=== PATIENT | male | born 1975 | race American Indian/Alaskan Native ===

== ENCOUNTER 2025-05-05 14:31 | Outpatient (AMB) | payer MEDICAID, SELFPAY ==
[2025-05-05 14:43] VITALS: BP 151/73; PULSE 90; RESP 19; TEMP 36.8; O2SAT 97; BMI 26.8
--- NOTE | 2025-05-05 14:43 | PD.ORTHCLVIS ---
Vital signs 05/05/25 14:43 Height 1.88 m Height Method Stated Weight 94.829 kg Weight Measurement Method Standing Scale BMI 26.8 BP 151/73 H Blood Pressure Source Automatic Cuff Blood Pressure Location Right Upper Arm Position Sitting Respiration 19 Pulse 90 Pulse Source Monitor Temp 98.2 F Temp Source Temporal Artery Scan Pulse Oximetry (%) 97 Oxygen Delivery Method Room Air Med/Allergies Allergies & Medications Allergies No Known Allergies Allergy (Unknown, Uncoded 05/05/25 14:44) Medication Reconciliation Hydrocodone/Acetaminophen * (NORCO 5/325 *) 1 tab PO Q4H PRN pain #14 tabs 06/19/16 [Rx Confirmed 05/05/25] metformin 1,000 mg tablet (Glucophage) 1,000 mg PO QDAC #0 tabs 06/21/16 [History Confirmed 05/05/25] clindamycin HCl 300 mg capsule 300 mg PO QID #40 caps 04/15/23 [Rx Confirmed 05/05/25] Exam Exam Patient is in no acute distress and is cooperative with the examination today. Breathing is nonlabored. In no respiratory distress. Bilateral extremities were evaluated and demonstrates sensation intact to light touch. Palpable pedal pulses are present. No significant edema is present. Bilateral hips were examined. The patient has no pain with log roll of the hips. Internal rotation to 30 degrees and external rotation to 30 degrees is painless. Negative FADIR. The left knee was examined. The left knee is in varus alignment. Range of motion from 0-115 degrees. Knee is stable to varus and valgus as well as AP translation with <5mm. Patient has a negative McMurrays. There is no pain with patellofemoral compression and no crepitus noted. The knee is tender to palpation medially. The right knee was also examined. The right knee is in varus alignment. Range of motion from 0-120 degrees. Knee is stable to varus and valgus as well as AP translation with <5mm. Patient has a negative McMurrays. There is no pain with patellofemoral compression and no crepitus noted. The knee is tender to palpation medially. Assessment and Plan Problem List (1) Degenerative arthritis of knee, bilateral: Status: Acute Plan: Patient is a 49-year-old male with bilateral knee pain and bilateral knee arthritis. He does not want to take anti-inflammatories or injections at this time. We discussed we can try home exercise program and that I would like to get weightbearing x-rays. We will see him back for follow-up of his xrays Office Procedures GNS Level of Care Nursing/Assessment Patient Status: Established Patient Nursing Assessment/Reassesment: Medication Reconciliation, Update PMH in EMR and Vital Signs Coordination of Care: Complex Care and Chronic Disease 1-5, Education Complex Pt/Fam, Consent,records obtained, informed consent, Results/Orders obtained and Staff clarify orders Established Patient Charge Established Patient Point Assignment: 95 Established Patient Point Charge: EP Level 3 (80-115) MA Intake Visit Data Collection New Patient or Established: Established Patient (seen at [facility] within 3 years) Reason for Visit:: RIGHT KNEE SPRAIN Seen by Clinical Staff ONLY (RN/MA): No Verbal consent obtained for Telemed visit?: No Behavioral Pediatrician Required: No PCP or OBGYN visit in last 3 months: Yes Hx Now: No Do You Feel Safe at Home: Yes Authorities Contacted: N/A Questionairres Past Medical History Past Medical History Have you ever been diagnosed with any of the following: Cardiology Problems Congestive Heart Failure: No Respiratory Problems Chronic Obstructive Pulmonary Disease (COPD): No Asthma: No Genital/Urinary Problems Renal Disease: No Endocrine Problems Diabetes Mellitus Type 1: No Diabetes Mellitus Type 2: Yes Blood Problems Sickle Cell Disease: No Subjective Visit Visit for: new patient and knee Immunization / Flu Flu Vaccine in the Last 12 Months: No Flu Vaccine Exclusion Criteria: Refused by Patient and No Exclusion Criteria History of Present Illness Chief complaint: RIGHT KNEE SPRAIN Jackson is a pleasant 49-year-old male with bilateral knee pain. He is doing well but has pain primarily on the right side. He used to [place]. The pain is primarily anterior and on the sides of his knees. He has an MRI but no standing x-rays Personal History Red flag PMH: BMI and other (specify) (DIABETES) BMI Counceling provided: No Pain Pain level (0-10): 0 Pain duration: COMES AND GOES Pain location: anterior and posterior Pain quality: sharp, dull and aching Pain timing: increases with activity Associated signs & symptoms: stiffness Ambulatory data Ambulatory device: none Treatments Improvement with previous injections: No Improvement with PT: No Improvement with NSAIDS: no Review of Systems Review of Systems: All systems negative unless otherwise noted in HPI.
--- NOTE | 2025-05-05 14:55 | XR_ITS ---
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
== END 2025-05-05 15:04 | disposition home or self-care (01) ==
LOC: HODSRG 14:31
PROVIDERS: PCP Physician Assistant; Referring Provider Physician Assistant; Supervising Provider Orthopaedic Surgery Adult Reconstructive Orthopaedic Surgery; Visit Provider Orthopaedic Surgery Adult Reconstructive Orthopaedic Surgery
DX: M17.0 Bilateral primary osteoarthritis of knee (principal); M25.562 Pain in left knee; M25.561 Pain in right knee; E11.9 Type 2 diabetes mellitus without complications
CPT/HCPCS: 73564; 99213; G0463

== ENCOUNTER 2025-06-18 14:56 | Outpatient (AMB) | payer MEDICAID, SELFPAY ==
[2025-06-18 15:04] VITALS: BP 125/68; PULSE 84; RESP 18; TEMP 36.7; O2SAT 95; BMI 26.7
--- NOTE | 2025-06-18 15:04 | ORTHONT_ITS ---
Vital signs 06/18/25 15:04 Height 1.88 m Height Method Measured Weight 94.489 kg Weight Measurement Method Standing Scale BMI 26.7 BP 125/68 Blood Pressure Source Automatic Cuff Blood Pressure Location Left Upper Arm Position Sitting Respiration 18 Pulse 84 Pulse Source Monitor Temp 98.0 F Temp Source Temporal Artery Scan Pulse Oximetry (%) 95 Oxygen Delivery Method Room Air Med/Allergies Allergies & Medications Allergies No Known Allergies Allergy (Unknown, Uncoded 06/18/25 15:08) Medication Reconciliation Hydrocodone/Acetaminophen * (NORCO 5/325 *) 1 tab PO Q4H PRN pain #14 tabs 06/19/16 [Rx Confirmed 06/18/25] metformin 1,000 mg tablet (Glucophage) 1,000 mg PO QDAC #0 tabs 06/21/16 [History Confirmed 06/18/25] clindamycin HCl 300 mg capsule 300 mg PO QID #40 caps 04/15/23 [Rx Confirmed 06/18/25] meloxicam 7.5 mg tablet 7.5 mg PO QDAY #45 tabs 06/18/25 [Rx] Exam Exam Patient is in no acute distress and is cooperative with the examination today. Breathing is nonlabored. In no respiratory distress. Bilateral extremities were evaluated and demonstrates sensation intact to light touch. Palpable pedal puls es are present. No significant edema is present. Bilateral hips were examined. The patient has no pain with log roll of the hips. Internal rotation to 30 degrees and external rotation to 30 degrees is painless. Negative FADIR. The left knee was examined. The left knee is in varus alignment. Range of motion from 0-115 degrees. Knee is stable to varus and valgus as well as AP translation with <5mm. Patient has a negative McMurrays. There is no pain with patellofemoral compression and no crepitus noted. The knee is tender to palpation medially. The right knee was also examined. The right knee is in varus alignment. Range of motion from 0-120 degrees. Knee is stable to varus and valgus as well as AP translation with <5mm. Patient has a negative McMurrays. There is no pain with patellofemoral compression and no crepitus noted. The knee is tender to palpation medially. Bilateral knee x-rays demonstrate mild arthritis Assessment and Plan Problem List (1) Degenerative arthritis of knee, bilateral: Status: Acute Plan: Patient is a 49-year-old male with bilateral knee pain and bilateral knee arthritis. He does not want to take anti-inflammatories or injections at this time. We will start with anti-inflammatory's at this time. I sent in prescription for meloxicam. He understands that he has a degenerative discal tear as well as mild arthritis on x-ray. We can continue with conservative treatment if he would like to. He reports the pain is not that bad at this time Office Procedures GNS Level of Care Nursing/Assessment Patient Status: Established Patient Nursing Assessment/Reassesment: Medication Reconciliation, Orthostatic Vitals and Update PMH in EMR Coordination of Care: Complex Care and Chronic Disease 1-5, Education Complex Pt/Fam, Consent,records obtained, informed consent, Results/Orders obtained and Staff clarify orders Established Patient Charge Established Patient Point Assignment: 90 Established Patient Point Charge: EP Level 3 (80-115) MA Intake Visit Data Collection New Patient or Established: Established Patient (seen at [facility] within 3 years) Reason for Visit:: F/U XRAY RESULTS Seen by Clinical Staff ONLY (RN/MA): No Plastics Plater Required: No PCP or OBGYN visit in last 3 months: Yes Hx Now: No Do You Feel Safe at Home: Yes Authorities Contacted: N/A Questionairres Past Medical History Past Medical History Have you ever been diagnosed with any of the following: Cardiology Problems Congestive Heart Failure: No Respiratory Problems Chronic Obstructive Pulmonary Disease (COPD): No Asthma: No Genital/Urinary Problems Renal Disease: No Endocrine Problems Diabetes Mellitus Type 1: No Diabetes Mellitus Type 2: Yes Blood Problems Sickle Cell Disease: No Subjective Visit Visit for: follow up visit and knee Immunization / Flu Flu Vaccine in the Last 12 Months: No Flu Vaccine Exclusion Criteria: No Exclusion Criteria History of Present Illness Chief complaint: F/U XRAY RESULTS Jackson is a pleasant 49-year-old male with bilateral knee pain. He is doing well but has pain primarily on the right side. He used to [place]. The pain is primarily anterior and on the sides of his knees. He has an MRI. Xrays demonstrate mild arthitis Personal History Red flag PMH: BMI and other (specify) (DIABETES) BMI Counceling provided: No Pain Pain level (0-10): 5 Pain duration: COMES AND GOES Pain location: inside (medial) and outside (lateral) Pain quality: aching Pain timing: increases with activity Associated signs & symptoms: stiffness Ambulatory data Ambulatory device: none Treatments Improvement with previous injections: No Improvement with PT: No Improvement with NSAIDS: no Review of Systems Review of Systems: All systems negative unless otherwise noted in HPI.
== END 2025-06-18 15:14 | disposition home or self-care (01) ==
PROVIDERS: PCP Physician Assistant; Referring Provider Physician Assistant; Supervising Provider Orthopaedic Surgery Adult Reconstructive Orthopaedic Surgery; Visit Provider Orthopaedic Surgery Adult Reconstructive Orthopaedic Surgery
DX: M17.0 Bilateral primary osteoarthritis of knee (principal); M25.562 Pain in left knee; M25.561 Pain in right knee; E11.9 Type 2 diabetes mellitus without complications
CPT/HCPCS: 99213; G0463